=== PATIENT | male | born 1975 | race American Indian/Alaskan Native ===

== ENCOUNTER 2020-04-16 08:28 | Emergency (ER) | payer BC ==
[2020-04-16 08:37] VITALS: BP 168/91
[2020-04-16 10:25] LABS: Hematocrit 44.1 % (35.5-45.6); Hemoglobin 14.2 gm/dl (11.8-15.2); Mean Corpuscular HGB Conc 32 % (32-34); Platelet Count 337 K/mm3 (140-440); Red Blood Count 6.91 M/mm3 (3.65-5.03); Red Cell Distribution Width 19.8 % (13.2-15.2)
[2020-04-16 10:31] LABS: Mean Corpuscular Volume 64 fl (84-94)
[2020-04-16 10:51] LABS: Alanine Aminotransferase 45 units/L (7-56); Albumin 4.4 g/dL (3.9-5); BUN/Creatinine Ratio 8; Blood Urea Nitrogen 6 mg/dL (9-20); Calcium 9.4 mg/dL (8.4-10.2); Hemolysis Index 4
[2020-04-16] MEDS ORDERED: dexAMETHasone 20 MG/5 ML VIAL IV ONE (12:13)
--- NOTE | 2020-04-16 12:21 | Emergency Department Report ---
ED General Adult HPI - General Chief complaint: Skin Rash Stated complaint: NECK PAIN Time Seen by Provider: 04/16/20 08:57 Source: patient Mode of arrival: Ambulatory Limitations: No Limitations - History of Present Illness Initial comments: 44-year-old -[place] male patient with a history of hypertension presents with complaints of a painful rash on the back of his neck 44-year-old -[place] male patient with history of hypertension presents with complaints of sudden onset of a painful rash on the posterior portion of his neck x this morning. He states the rash is itchy since being here in the ED. He denies any fever/chills/sweats or known insect bites. 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 He describes the pain as a tightness and burning and rates his pain as a 4/10 in severity. Patient states he contacted his primary care provider who instructed him to come to the ED. - Related Data Previous Rx's Medication Instructions Recorded Last Taken Type Loratadine 10 mg PO QDAY 10 Days #10 tablet 04/16/20 Unknown Rx Prednisone [predniSONE 10 mg 10 mg PO .TAPER #1 tab.ds.pk 04/16/20 Unknown Rx (6-Day Pack, 21 Tabs)] Triamcinolone Acetonide 15 gm TP TID PRN 7 Days #1 04/16/20 Unknown Rx oint...g. Allergies Allergy/AdvReac Type Severity Reaction Status Date / Time No Known Allergies Allergy Verified 04/16/20 08:37 ED Review of Systems ROS: Stated complaint: NECK PAIN Other details as noted in HPI Constitutional: denies: chills, fever ENT: denies: throat pain Respiratory: denies: cough, shortness of breath Cardiovascular: denies: chest pain Gastrointestinal: denies: nausea, vomiting Skin: rash, pruritus. denies: lesions, change in color Neurological: denies: headache, weakness, numbness, paresthesias Hematological/Lymphatic: denies: easy bleeding, swollen glands ED Past Medical Hx - Past Medical History Previous Medical History?: Yes Hx Hypertension: Yes - Surgical History Past Surgical History?: Yes Additional Surgical History: Rt. wrist, lt. ankle - Social History Smoking Status: Never Smoker Substance Use Type: None - Medications Home Medications: Home Medications Medication Instructions Recorded Confirmed Last Taken Type Loratadine 10 mg PO QDAY 10 Days #10 tablet 04/16/20 Unknown Rx Prednisone [predniSONE 10 mg 10 mg PO .TAPER #1 tab.ds.pk 04/16/20 Unknown Rx (6-Day Pack, 21 Tabs)] Triamcinolone Acetonide 15 gm TP TID PRN 7 Days #1 04/16/20 Unknown Rx oint...g. ED Physical Exam - General Limitations: No Limitations General appearance: alert, in no apparent distress, obese - Head Head exam: Present: atraumatic, normocephalic - Eye Eye exam: Present: normal appearance. Absent: scleral icterus - ENT ENT exam: Present: mucous membranes moist - Neck Neck exam: Present: full ROM, other (5 cm ovoid indurated slightly elevated rash noted to the left posterior neck with a second approximately 7 to 8 cm rash of similar appearance to the right posterior neck. There is mild tenderness to palpation. Patient also states palpation causes itching. Minimal erythema noted. No fluctuance noted.). Absent: lymphadenopathy - Respiratory Respiratory exam: Present: normal lung sounds bilaterally. Absent: respiratory distress - Cardiovascular Cardiovascular Exam: Present: regular rate, normal rhythm. Absent: systolic murmur, diastolic murmur, rubs, gallop - Back Exam Back exam: Present: normal inspection - Neurological Exam Neurological exam: Present: alert, oriented X3 - Psychiatric Psychiatric exam: Present: normal affect, normal mood - Skin Skin exam: Present: warm, dry, intact, normal color, rash. Absent: diaphoretic, ecchymosis ED Course Vital Signs 04/16/20 08:35 Temperature 99 F Pulse Rate 89 Respiratory 17 Rate Blood Pressure 168/91 O2 Sat by Pulse 99 Oximetry ED Medical Decision Making - Lab Data Result diagrams: 04/16/20 10:12 04/16/20 10:12 Lab Results 04/16/20 04/16/20 Range/Units 10:12 10:12 WBC 14.9 H (4.5-11.0) K/mm3 RBC 6.91 H (3.65-5.03) M/mm3 Hgb 14.2 (11.8-15.2) gm/dl Hct 44.1 (35.5-45.6) % MCV 64 L (84-94) fl MCH 21 L (28-32) pg MCHC 32 (32-34) % RDW 19.8 H (13.2-15.2) % Plt Count 337 (140-440) K/mm3 Lymph # [employer] Sodium 143 (137-145) mmol/L Potassium 3.3 L (3.6-5.0) mmol/L Chloride 99.9 (98-107) mmol/L Carbon Dioxide 26 (22-30) mmol/L Anion Gap 20 mmol/L BUN 6 L (9-20) mg/dL Creatinine 0.8 (0.8-1.5) mg/dL Estimated GFR > 60 ml/min BUN/Creatinine Ratio 8 % Glucose 103 H (75-100) mg/dL Calcium 9.4 (8.4-10.2) mg/dL Total Bilirubin 0.80 (0.1-1.2) mg/dL AST 38 (5-40) units/L ALT 45 (7-56) units/L Alkaline Phosphatase 117 (35-129) units/L Total Protein 7.8 (6.3-8.2) g/dL Albumin 4.4 (3.9-5) g/dL Albumin/Globulin Ratio 1.3 % - Medical Decision Making Patient here with complaints of painful itchy rash to the posterior neck that suddenly began this morning. Discussed exam and lab findings with Dr. Weinstein- states rash appears to be more consistent with contact dermatitis. Patient given dose of Decadron here in the ED and prescription for prednisone, Claritin, and triamcinolone. Discussed care of rash and signs and symptoms of infection that should prompt immediate return to the emergency department, patient verbalizes understanding. Patient also recommended to follow-up with his primary care provider within 3 to 5 days. Critical care attestation.: If time is entered above; I have spent that time in minutes in the direct care of this critically ill patient, excluding procedure time. ED Disposition Clinical Impression: Contact dermatitis Qualifiers: Contact dermatitis type: allergic Contact dermatitis trigger: other trigger Qualified Code(s): L23.89 - Allergic contact dermatitis due to other agents; L23.8 - Allergic contact dermatitis due to other agents Disposition: DC-01 TO HOME OR SELFCARE Is pt being admited?: No Condition: Stable Instructions: Contact Dermatitis (ED) Prescriptions: Loratadine 10 mg PO QDAY 10 Days #10 tablet Prednisone [predniSONE 10 mg (6-Day Pack, 21 Tabs)] 10 mg PO .TAPER #1 tab.ds.pk Triamcinolone Acetonide 15 gm TP TID PRN 7 Days #1 oint...g. PRN Reason: itching Referrals: PRIMARY CARE, [Primary Care Provider] - 3-5 Days
[2020-04-16 12:33] LABS: Anisocytosis 1+; Basophils % (Manual) 0 % (0.0-1.8); Eosinophils % (Manual) 0 % (0.0-4.3); Hypochromasia 2+; Large Platelets Few; Platelet Estimate Consistent w Auto; Total Cells Counted 100
== END 2020-04-16 12:44 | disposition home or self-care (01) ==
LOC: ED 08:28
DX: L25.9 Unspecified contact dermatitis, unspecified cause (principal); I10 Essential (primary) hypertension; Z98.890 Other specified postprocedural states; Z79.899 Other long term (current) drug therapy
CPT/HCPCS: 36415; 80053; 85007; 85025; 96374; 99283; J1100

== ENCOUNTER 2020-05-03 10:17 | Emergency (ER) | payer BC ==
[2020-05-03 10:24] VITALS: BP 165/96
--- NOTE | 2020-05-03 12:41 | XRay Report ---
CHEST 2 VIEWS INDICATION: cough. COMPARISON: None FINDINGS: Support devices: None. Heart: Within normal limits. Lungs/pleura: No acute air space or interstitial disease. No pneumothorax. Additional findings: None. IMPRESSION: No acute findings. Signer Name: Raul Albarado Jr, MD Signed: 05/03/2020 12:36 PM Workstation Name: [id number]
[2020-05-03] MEDS ORDERED: BUTALB/ACETAMINOPHEN/CAFFEINE TAB PO ONE (12:58)
--- NOTE | 2020-05-03 12:58 | Emergency Department Report ---
- General Chief Complaint: Upper Respiratory Infection Stated Complaint: HEADACHE/BODY ACHE Time Seen by Provider: 05/03/20 11:56 Source: patient Mode of arrival: Ambulatory Limitations: No Limitations - History of Present Illness Initial Comments: 45-year-old male presents to the ER today complaining of sore throat, generalized body aches, headaches, sinus and nasal congestion since around April 28. He reports a cough but states that it is mild and intermittent. Patient states that he has a history of sinus infections/allergies. He did have sinus surgery in the past as well as tonsillectomy surgery several years ago. He states that he takes Benadryl every day at night, and when he symptoms started 5 days ago he started using a nasal spray that was prescribed to him about 2 months ago but is not really helping. He has also tried warm salt water gargles to help with the sore throat but without any relief. He denies any fever, chills, ill contacts or known COVID 19 contacts and denies recent travel. MD Complaint: sore throat, nasal congestion, sinus pain -: days(s) (5) - Related Data Previous Rx's Medication Instructions Recorded Last Taken Type Loratadine 10 mg PO QDAY 10 Days #10 tablet 04/16/20 Unknown Rx Amoxicillin [Trimox CAP] 500 mg PO Q8H #30 capsule 05/03/20 Unknown Rx Butalb/Acetamin/Caff 50-325-40 1 tab PO Q6HR PRN #12 tablet 05/03/20 Unknown Rx [Fioricet 50-325-40] Triamcinolone Acetonide [Nasacort 2 sprays NS DAILY #1 spray 05/03/20 Unknown Rx SPRAY] Allergies Allergy/AdvReac Type Severity Reaction Status Date / Time No Known Allergies Allergy Verified 04/16/20 08:37 ED Review of Systems ROS: Stated complaint: HEADACHE/BODY ACHE Other details as noted in HPI Comment: All other systems reviewed and negative Constitutional: denies: chills, fever ENT: throat pain, congestion. denies: ear pain Respiratory: cough. denies: orthopnea, shortness of breath, SOB with exertion, SOB at rest, stridor, wheezing Gastrointestinal: denies: abdominal pain, nausea, diarrhea Genitourinary: denies: urgency, dysuria Musculoskeletal: myalgia Neurological: headache ED Past Medical Hx - Past Medical History Previous Medical History?: Yes Hx Hypertension: Yes - Surgical History Past Surgical History?: Yes Additional Surgical History: Rt. wrist, lt. ankle. tonsillectomy. nasal reconstruction - Social History Smoking Status: Never Smoker Substance Use Type: None - Medications Home Medications: Home Medications Medication Instructions Recorded Confirmed Last Taken Type Loratadine 10 mg PO QDAY 10 Days #10 tablet 04/16/20 Unknown Rx Amoxicillin [Trimox CAP] 500 mg PO Q8H #30 capsule 05/03/20 Unknown Rx Butalb/Acetamin/Caff 50-325-40 1 tab PO Q6HR PRN #12 tablet 05/03/20 Unknown Rx [Fioricet 50-325-40] Triamcinolone Acetonide [Nasacort 2 sprays NS DAILY #1 spray 05/03/20 Unknown Rx SPRAY] ED Physical Exam - General Limitations: No Limitations General appearance: alert - Head Head exam: Present: atraumatic, normocephalic, normal inspection - Eye Eye exam: Present: normal appearance, PERRL, EOMI Pupils: Present: normal accommodation - ENT ENT exam: Present: mucous membranes moist, TM's normal bilaterally, other (Moderate erythema noted to the posterior pharynx. No apparent exudates. Patient does have frontal sinus tenderness bilaterally.) - Neck Neck exam: Present: normal inspection, full ROM. Absent: meningismus, lymphadenopathy - Respiratory Respiratory exam: Present: normal lung sounds bilaterally. Absent: respiratory distress - Cardiovascular Cardiovascular Exam: Present: regular rate, normal rhythm, normal heart sounds - GI/Abdominal GI/Abdominal exam: Present: soft. Absent: tenderness - Neurological Exam Neurological exam: Present: alert, oriented X3, CN II-XII intact - Psychiatric Psychiatric exam: Present: normal affect, normal mood - Skin Skin exam: Present: intact ED Course Vital Signs 05/03/20 10:18 Temperature 99.3 F Pulse Rate 95 H Respiratory 18 Rate Blood Pressure 165/96 O2 Sat by Pulse 98 Oximetry ED Medical Decision Making - Radiology Data Radiology results: report reviewed - Medical Decision Making 1303 -- The patient is resting comfortably, is alert and in no distress. The patient has a normal mental status and is neurologically intact. The patient appears well and is able to tolerate food or fluid by mouth, and there is no significant dehydration. There is no respiratory distress and no signs of systemic toxicity. The history, exam, diagnostic testing (if any) and current condition do not demonstrate an infectious process such as meningitis, severe pneumonia, retropharyngeal abscess, epiglottitis, sepsis or other serious bacterial infection requiring further testing, treatment, consultation, or admission at this time. The vital signs have been stable. The patient's condition is stable and appropriate for discharge. The patient will pursue further outpatient evaluation with the primary care physician or other designated or consulting physician as indicated in the discharge instructions. Critical care attestation.: If time is entered above; I have spent that time in minutes in the direct care of this critically ill patient, excluding procedure time. ED Disposition Clinical Impression: Bacterial sinusitis, Pharyngitis Disposition: TO HOME OR SELFCARE Is pt being admited?: No Does the pt Need Aspirin: No Condition: Stable Instructions: Pharyngitis (ED), Sinusitis (ED) Prescriptions: Butalb/Acetamin/Caff 50-325-40 [Fioricet 50-325-40] 1 tab PO Q6HR PRN #12 tablet PRN Reason: Headache Triamcinolone Acetonide [Nasacort SPRAY] 2 sprays NS DAILY #1 spray Amoxicillin [Trimox CAP] 500 mg PO Q8H #30 capsule Referrals: PRIMARY CARE, [Primary Care Provider] - 3-5 Days Time of Disposition: 13:01
== END 2020-05-03 13:21 | disposition home or self-care (01) ==
LOC: ED 10:17
DX: J32.8 Other chronic sinusitis (principal); B96.89 Other specified bacterial agents as the cause of diseases classified elsewhere; J02.9 Acute pharyngitis, unspecified; I10 Essential (primary) hypertension; Z98.890 Other specified postprocedural states; Z79.2 Long term (current) use of antibiotics; Z79.899 Other long term (current) drug therapy
CPT/HCPCS: 71046; 99283

== ENCOUNTER 2020-07-26 09:37 | Emergency (ER) | payer BC ==
--- NOTE | 2020-07-26 10:34 | Emergency Department Report ---
HPI - General Chief Complaint: Abdominal Pain Time Seen by Provider: 07/26/20 10:23 - HPI HPI: This is a 45-year-old male who presents to the emergency department with a complaint of abdominal pain that started yesterday afternoon and worsened overnight. 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 He did not take anything for his symptoms at that time, but went home and "I tried to have a bowel movement" and the patient says that he was having some improvement. However, overnight, the abdominal pain worsened to the point where the patient was unable to sleep. It is associated with some nausea without vomiting. Patient has a history of hypertension and psoriasis. He follows with [facility] primary care. No recent travel or sick contacts at home. ED Past Medical Hx - Past Medical History Hx Hypertension: Yes - Surgical History Past Surgical History?: Yes Additional Surgical History: Rt. wrist, lt. ankle. tonsillectomy. nasal reconstruction - Social History Smoking Status: Never Smoker - Medications Home Medications: Home Medications Medication Instructions Recorded Confirmed Last Taken Type Loratadine 10 mg PO QDAY 10 Days #10 tablet 04/16/20 Unknown Rx Amoxicillin [Trimox CAP] 500 mg PO Q8H #30 capsule 05/03/20 Unknown Rx Butalb/Acetamin/Caff 50-325-40 1 tab PO Q6HR PRN #12 tablet 05/03/20 Unknown Rx [Fioricet 50-325-40] Triamcinolone Acetonide [Nasacort 2 sprays NS DAILY #1 spray 05/03/20 Unknown R x SPRAY] Amoxicillin/Potassium Clav 1 each PO BID #14 tablet 07/26/20 Unknown Rx [Augmentin 875-125 Tablet] HYDROcodone/APAP 5-325 [[place] 1 each PO Q6HR PRN #10 tablet 07/26/20 Unknown Rx 5/325] ED Review of Systems ROS: Stated complaint: SEVERE ABD PAIN Other details as noted in HPI Comment: All other systems reviewed and negative Constitutional: denies: chills, fever Eyes: denies: eye pain, vision change ENT: denies: ear pain, throat pain Respiratory: denies: cough, shortness of breath Cardiovascular: denies: chest pain, palpitations Gastrointestinal: abdominal pain, nausea. denies: vomiting Genitourinary: denies: dysuria, discharge Musculoskeletal: denies: back pain, arthralgia Skin: denies: rash, lesions Neurological: denies: headache, weakness Physical Exam - Physical Exam Vital Signs: Vital Signs 07/26/20 09:49 Temperature 98.2 F Pulse Rate 82 Respiratory 18 Rate Blood Pressure 197/96 O2 Sat by Pulse 98 Oximetry Physical Exam: GENERAL: The patient is well-developed well-nourished. HENT: Normocephalic. Atraumatic. Patient has moist mucous membranes. EYES: Extraocular motions are intact. NECK: Supple. Trachea is midline. CHEST/LUNGS: Clear to auscultation. There is no respiratory distress noted. HEART/CARDIOVASCULAR: Regular. There is no tachycardia. There is no murmur. ABDOMEN: Abdomen is soft. There is some left upper quadrant and epigastric tenderness to palpation. No guarding. Patient has normal bowel sounds. Obese habitus. SKIN: Skin is warm and dry. NEURO: The patient is awake, alert, and oriented. The patient is cooperative. The patient has no focal neurologic deficits. Normal speech. MUSCULOSKELETAL: There is no tenderness or deformity. ED Course Vital Signs 07/26/20 09:49 Temperature 98.2 F Pulse Rate 82 Respiratory 18 Rate Blood Pressure 197/96 O2 Sat by Pulse 98 Oximetry - Reevaluation(s) Reevaluation #1: 07/26/20 15:26 Lab Results 07/26/20 07/26/20 07/26/20 Range/Units 10:28 10:28 10:28 WBC 12.7 H (4.5-11.0) K/mm3 RBC 6.43 H (3.65-5.03) M/mm3 Hgb 13.1 (11.8-15.2) gm/dl Hct 41.0 (35.5-45.6) % MCV 64 L (84-94) fl MCH 20 L (28-32) pg MCHC 32 (32-34) % RDW 19.5 H (13.2-15.2) % Plt Count 346 (140-440) K/mm3 Lymph % (Auto) 30.8 (13.4-35.0) % [place] % (Auto) 5.1 (0.0-7.3) % Eos % (Auto) 1.5 (0.0-4.3) % Baso % (Auto) 0.4 (0.0-1.8) % Lymph # 3.9 (1.2-5.4) K/mm3 [place] # 0.7 (0.0-0.8) K/mm3 Eos # 0.2 (0.0-0.4) K/mm3 Baso # 0.1 (0.0-0.1) K/mm3 Seg Neutrophils % 62.2 (40.0-70.0) % Seg Neutrophils # 7.9 H (1.8-7.7) K/mm3 Sodium 139 (137-145) mmol/L Potassium 2.9 L* (3.6-5.0) mmol/L Chloride 96.6 L (98-107) mmol/L Carbon Dioxide 28 (22-30) mmol/L Anion Gap 17 mmol/L BUN 7 L (9-20) mg/dL Creatinine 0.8 (0.8-1.3) mg/dL Estimated GFR > 60 ml/min BUN/Creatinine Ratio 9 % Glucose 105 H (75-100) mg/dL Calcium 9.1 (8.4-10.2) mg/dL Total Bilirubin 0.70 (0.1-1.2) mg/dL AST 33 (5-40) units/L ALT 34 (7-56) units/L Alkaline Phosphatase 102 (35-129) units/L Total Protein 7.9 (6.3-8.2) g/dL Albumin 4.2 (3.9-5) g/dL Albumin/Globulin Ratio 1.1 % Lipase 14 (13-60) units/L Urine Color (Yellow) Urine Turbidity (Clear) Urine pH (5.0-7.0) Ur Specific [place] (1.003-1.030) Urine Protein (Negative) mg/dL Urine Glucose (UA) (Negative) mg/dL Urine Ketones (Negative) mg/dL Urine Blood (Negative) Urine Nitrite (Negative) Urine Bilirubin (Negative) Urine Urobilinogen (<2.0) mg/dL Ur Leukocyte Esterase (Negative) Urine WBC (Auto) (0.0-6.0) /HPF Urine RBC (Auto) (0.0-6.0) /HPF U Epithel Cells (Auto) (0-13.0) /HPF Urine Mucus /HPF 07/26/ Range/Units Unknown WBC (4.5-11.0) K/mm3 RBC (3.65-5.03) M/mm3 Hgb (11.8-15.2) gm/dl Hct (35.5-45.6) % MCV (84-94) fl MCH (28-32) pg MCHC (32-34) % RDW (13.2-15.2) % Plt Count (140-440) K/mm3 Lymph % (Auto) (13.4-35.0) % [place] % (Auto) (0.0-7.3) % Eos % (Auto) (0.0-4.3) % Baso % (Auto) (0.0-1.8) % Lymph # (1.2-5.4) K/mm3 [place] # (0.0-0.8) K/mm3 Eos # (0.0-0.4) K/mm3 Baso # (0.0-0.1) K/mm3 Seg Neutrophils % (40.0-70.0) % Seg Neutrophils # (1.8-7.7) K/mm3 Sodium (137-145) mmol/L Potassium (3.6-5.0) mmol/L Chloride (98-107) mmol/L Carbon Dioxide (22-30) mmol/L Anion Gap mmol/L BUN (9-20) mg/dL Creatinine (0.8-1.3) mg/dL Estimated GFR ml/min BUN/Creatinine Ratio % Glucose (75-100) mg/dL Calcium (8.4-10.2) mg/dL Total Bilirubin (0.1-1.2) mg/dL AST (5-40) units/L ALT (7-56) units/L Alkaline Phosphatase (35-129) units/L Total Protein (6.3-8.2) g/dL Albumin (3.9-5) g/dL Albumin/Globulin Ratio % Lipase (13-60) units/L Urine Color Yellow (Yellow) Urine Turbidity Clear (Clear) Urine pH 6.0 (5.0-7.0) Ur Specific [place] 1.017 (1.003-1.030) Urine Protein 30 mg/dl (Negative) mg/dL Urine Glucose (UA) Neg (Negative) mg/dL Urine Ketones Neg (Negative) mg/dL Urine Blood Neg (Negative) Urine Nitrite Neg (Negative) Urine Bilirubin Neg (Negative) Urine Urobilinogen < 2.0 (<2.0) mg/dL Ur Leukocyte Esterase Neg (Negative) Urine WBC (Auto) 1.0 (0.0-6.0) /HPF Urine RBC (Auto) 3.0 (0.0-6.0) /HPF U Epithel Cells (Auto) < 1.0 (0-13.0) /HPF Urine Mucus Few /HPF ED Medical Decision Making - Lab Data Result diagrams: 07/26/20 10:28 07/26/20 10:28 - Radiology Data Radiology results: report reviewed, image reviewed interpreted by me: Abdominal x-ray shows nonspecific nonobstructive bowel gas. CT abdomen pelvis w con INDICATION: Abd pain. TECHNIQUE: All CT scans at this location are performed using the following dose modulation technique: Automated exposure control. CONTRAST: IV. COMPARISON: None available. CT abdomen: Evaluation the parenchymal organs demonstrates diffuse fatty infiltration the liver. The remaining parenchymal organs are unremarkable. Negative for abdominal mass, adenopathy or fluid collection. Evaluation of bowel demonstrates mild thickening involving several loops of jejunum anteriorly at the mid abdomen. There is mild mesenteric inflammation. No obstruction or pneumatosis. CT PELVIS: Negative for mass, fluid or inflammation. IMPRESSION: 1. Moderate thickening involving several loops of jejunum with associated mesenteric inflammation. Infection is the most likely etiology. 2. Large, fatty liver. - Medical Decision Making This patient presents with some mid to upper abdominal pain since yesterday. He has some tenderness to palpation but no guarding. His abdomen is soft, nondistended and nontoxic in appearance. Patient's labs are mostly unremarkable except for a hypokalemia with potassium of 2.9. For this the patient was given both IV and oral potassium chloride supplementation. Abdominal x-ray shows nonspecific nonobstructive bowel gas. CT of the abdomen and pelvis with IV contrast shows some inflammation of the jejunum that could be consistent with infection. Patient is afebrile. No leukocytosis. He will be treated with both Augmentin and some pain medication. He has been given outpatient referral for gastroenterology. He will return to the emergency department with any worsening of his symptoms and with any acute distress. Critical Care Time: No Critical care attestation.: If time is entered above; I have spent that time in minutes in the direct care of this critically ill patient, excluding procedure time. ED Disposition Clinical Impression: Hypokalemia, Enteritis Hypertension Qualifiers: Hypertension type: essential hypertension Qualified Code(s): I10 - Essential (primary) hypertension Disposition: TO HOME OR SELFCARE Is pt being admited?: No Condition: Stable Instructions: Hypokalemia (ED), Abdominal Pain (ED), Hypertension (ED) Additional Instructions: Please follow-up with a primary care physician in the next few days. Return to the emergency department with any worsening of your symptoms or with any acute distress. You have been prescribed a medication that is sedating and therefore should not be taken prior to driving, working, and responsible for children and in no way should be mixed with alcohol of any quantity. Prescriptions: Amoxicillin/Potassium Clav [Augmentin 875-125 Tablet] 1 each PO BID #14 tablet HYDROcodone/APAP 5-325 [[place] 5/325] 1 each PO Q6HR PRN #10 tablet PRN Reason: Pain Referrals: PRIMARY CARE, [Primary Care Provider] - 2-3 Days Time of Disposition: 14:26
[2020-07-26 10:40] LABS: Basophils # (Auto) 0.1 K/mm3 (0.0-0.1); Basophils % (Auto) 0.4 % (0.0-1.8); Eosinophils # (Auto) 0.2 K/mm3 (0.0-0.4); Eosinophils % (Auto) 1.5 % (0.0-4.3); Hemoglobin 13.1 gm/dl (11.8-15.2); Lymphocytes # (Auto) 3.9 K/mm3 (1.2-5.4); Lymphocytes % (Auto) 30.8 % (13.4-35.0); Mean Corpuscular HGB Conc 32 % (32-34); Monocytes # (Auto) 0.7 K/mm3 (0.0-0.8); Monocytes % (Auto) 5.1 % (0.0-7.3); Platelet Count 346 K/mm3 (140-440); Red Blood Count 6.43 M/mm3 (3.65-5.03); Red Cell Distribution Width 19.5 % (13.2-15.2)
[2020-07-26 10:43] LABS: Mean Corpuscular Volume 64 fl (84-94)
[2020-07-26 11:03] LABS: Alanine Aminotransferase 34 units/L (7-56); Albumin 4.2 g/dL (3.9-5); BUN/Creatinine Ratio 9; Blood Urea Nitrogen 7 mg/dL (9-20); Calcium 9.1 mg/dL (8.4-10.2); Hemolysis Index 2
[2020-07-26] MEDS ORDERED: POTASSIUM CHLORIDE ER 20 MEQ TAB PO ONE (11:31)
[2020-07-26] MEDS ORDERED: POTASSIUM CHLORIDE 10 MEQ 10 MEQ/100 ML BAG IV ONE (11:31)
--- NOTE | 2020-07-26 11:45 | XRay Report ---
ABDOMEN 4 VIEW(S) INDICATION / CLINICAL INFORMATION: Abd pain. COMPARISON: None available. FINDINGS: TUBES / LINES: None. BOWEL GAS PATTERN: Stomach appears to be mildly distended with fluid air there appear to be mild air fluid levels in small bowel, which is not dilated. Fecal material is noted throughout the colon. FREE AIR / EXTRALUMINAL GAS: None seen. ADDITIONAL FINDINGS: Pelvic phleboliths are noted. IMPRESSION: 1. Fluid in the stomach and small bowel suggests gastroenteritis. 2. Mild constipation. Signer Name: Dileep Mansfield MD Signed: 07/26/2020 11:41 AM Workstation Name: [id number]
[2020-07-26] MEDS ORDERED: SODIUM CHLORIDE 0.9% 500 ML 500 ML ONE (12:20)
[2020-07-26] MEDS ORDERED: SODIUM CHLORIDE 0.9% 500 ML 500 ML IV SCH (13:00)
[2020-07-26 14:14] LABS: Bilirubin,Urine NEG (Negative); Blood,Urine NEG (Negative); Color,Urine Yellow (Yellow); Mucus,Urine FEW /HPF; Urobilinogen,Urine < 2.0 mg/dL (<2.0)
--- NOTE | 2020-07-26 14:20 | Cat Scan Report ---
CT abdomen pelvis w con INDICATION: Abd pain. TECHNIQUE: All CT scans at this location are performed using the following dose modulation technique: Automated exposure control. CONTRAST: IV. COMPARISON: None available. CT abdomen: Evaluation the parenchymal organs demonstrates diffuse fatty infiltration the liver. The remaining parenchymal organs are unremarkable. Negative for abdominal mass, adenopathy or fluid collection. Evaluation of bowel demonstrates mild thickening involving several loops of jejunum anteriorly at the mid abdomen. There is mild mesenteric inflammation. No obstruction or pneumatosis. CT PELVIS: Negative for mass, fluid or inflammation. IMPRESSION: 1. Moderate thickening involving several loops of jejunum with associated mesenteric inflammation. In fection is the most likely etiology. 2. Large, fatty liver. Signer Name: Sanya Cardoza MD Signed: 07/26/2020 2:16 PM Workstation Name: [id number]
[2020-07-26 15:02] VITALS: BP 172/104
== END 2020-07-26 14:47 | disposition home or self-care (01) ==
LOC: ED 09:37
DX: E87.6 Hypokalemia (principal); K52.9 Noninfective gastroenteritis and colitis, unspecified; I10 Essential (primary) hypertension; Z90.89 Acquired absence of other organs; Z98.890 Other specified postprocedural states; Z79.2 Long term (current) use of antibiotics; Z79.899 Other long term (current) drug therapy
CPT/HCPCS: 36415; 74019; 74177; 80053; 81001; 83690; 85025; 96365; 96366; 99284; J3480; J7040; Q9967

== ENCOUNTER 2020-08-04 00:58 | Emergency (ER) | payer BC ==
[2020-08-04 02:02] VITALS: BP 136/85
[2020-08-04 03:33] LABS: Hematocrit 41.7 % (35.5-45.6); Mean Corpuscular HGB Conc 31 % (32-34); Platelet Count 369 K/mm3 (140-440); Red Cell Distribution Width 19.3 % (13.2-15.2)
[2020-08-04 03:41] LABS: Mean Corpuscular Volume 65 fl (84-94)
[2020-08-04 03:52] LABS: BUN/Creatinine Ratio 10; Blood Urea Nitrogen 8 mg/dL (9-20); Calcium 9.2 mg/dL (8.4-10.2); Hemolysis Index 12
--- NOTE | 2020-08-04 05:13 | Emergency Department Report ---
ED General Adult HPI - General Chief complaint: Abdominal Pain Stated complaint: RT SIDE PAIN HEAD SWELLING POSS ALLERGIC REACTION Time Seen by Provider: 08/04/20 04:58 Source: patient Mode of arrival: Ambulatory Limitations: No Limitations - History of Present Illness Initial comments: 45-year-old obese -[place] male with past medical history of hypertension presents emergency department complaining of pain and discomfort to the right lower skull base and upper neck region also reports some irritation to his abdomen of an unknown etiology for the past couple days. No nausea, no vomiting, no hematuria, no dysuria, no fever, chills, sweats no chest pain or palpitations no nausea vomiting -: Gradual Radiation: non-radiation Quality: dull Consistency: constant Improves with: none Worsens with: none Associated Symptoms: denies: confusion, cough, headaches, loss of appetite, malaise, nausea/vomiting Treatments Prior to Arrival: none - Related Data Previous Rx's Medication Instructions Recorded Last Taken Type Loratadine 10 mg PO QDAY 10 Days #10 tablet 04/16/20 Unknown Rx Amoxicillin [Trimox CAP] 500 mg PO Q8H #30 capsule 05/03/20 Unknown Rx Butalb/Acetamin/Caff 50-325-40 1 tab PO Q6HR PRN #12 tablet 05/03/20 Unknown Rx [Fioricet 50-325-40] Triamcinolone Acetonide [Nasacort 2 sprays NS DAILY #1 spray 05/03/20 Unknown Rx SPRAY] Amoxicillin/Potassium Clav 1 each PO BID #14 tablet 07/26/20 Unknown Rx [Augmentin 875-125 Tablet] HYDROcodone/APAP 5-325 [[place] 1 each PO Q6HR PRN #10 tablet 07/26/20 Unknown Rx 5/325] Ketorolac [Toradol] 10 mg PO Q6H PRN #15 tablet 08/04/20 Unknown Rx Mupirocin [Bactroban 2%] 15 applic TP TID #15 gm 08/04/20 Unknown Rx Sulfamethoxazole/Trimethoprim 1 each PO BID #20 tablet 08/04/20 Unknown Rx [Bactrim Ds] Allergies Allergy/AdvReac Type Severity Reaction Status Date / Time No Known Allergies Allergy Verified 04/16/20 08:37 ED Review of Systems ROS: Stated complaint: RT SIDE PAIN HEAD SWELLING POSS ALLERGIC REACTION Other details as noted in HPI Comment: All other systems reviewed and negative ED Past Medical Hx - Past Medical History Previous Medical History?: Yes Hx Hypertension: Yes Hx Kidney Stones: Yes Additional medical history: Morbid Obesity - Surgical History Past Surgical History?: Yes Additional Surgical History: Rt. wrist, lt. ankle. tonsillectomy. nasal reconstruction - Social History Smoking Status: Never Smoker Substance Use Type: None - Medications Home Medications: Home Medications Medication Instructions Recorded Confirmed Last Taken Type Loratadine 10 mg PO QDAY 10 Days #10 tablet 04/16/20 Unknown Rx Amoxicillin [Trimox CAP] 500 mg PO Q8H #30 capsule 05/03/20 Unknown Rx Butalb/Acetamin/Caff 50-325-40 1 tab PO Q6HR PRN #12 tablet 05/03/20 Unknown Rx [Fioricet 50-325-40] Triamcinolone Acetonide [Nasacort 2 sprays NS DAILY #1 spray 05/03/20 Unknown Rx SPRAY] Amoxicillin/Potassium Clav 1 each PO BID #14 tablet 07/26/20 Unknown Rx [Augmentin 875-125 Tablet] HYDROcodone/APAP 5-325 [[place] 1 each PO Q6HR PRN #10 tablet 07/26/20 Unknown Rx 5/325] Ketorolac [Toradol] 10 mg PO Q6H PRN #15 tablet 08/04/20 Unknown Rx Mupirocin [Bactroban 2%] 15 applic TP TID #15 gm 08/04/20 Unknown Rx Sulfamethoxazole/Trimethoprim 1 each PO BID #20 tablet 08/04/20 Unknown Rx [Bactrim Ds] ED Physical Exam - General Limitations: No Limitations General appearance: alert, in no apparent distress - Head Head exam: Present: atraumatic - Expanded Head Exam Expanded Head exam: Present: general tenderness 1 - Red swollen indurated area with warmth and tenderness. No lymphadenopathy no discharge - Eye Eye exam: Present: normal appearance, PERRL, EOMI Pupils: Present: normal accommodation - ENT ENT exam: Present: normal exam - Neck Neck exam: Present: normal inspection, full ROM, lymphadenopathy (s) - Respiratory Respiratory exam: Present: normal lung sounds bilaterally - Cardiovascular Cardiovascular Exam: Present: regular rate, normal rhythm. Absent: systolic murmur, diastolic murmur, rubs, gallop - GI/Abdominal GI/Abdominal exam: Present: soft, normal bowel sounds - Rectal Rectal exam: Present: deferred - Extremities Exam Extremities exam: Present: normal inspection - Back Exam Back exam: Present: normal inspection. Absent: CVA tenderness (R), CVA tenderness (L) - Neurological Exam Neurological exam: Present: alert, oriented X3, CN II-XII intact - Psychiatric Psychiatric exam: Present: normal affect, normal mood - Skin Skin exam: Present: warm, dry, intact, normal color. Absent: rash ED Course Vital Signs 08/04/20 01:56 Temperature 98.2 F Pulse Rate 94 H Respiratory 18 Rate Blood Pressure 136/85 O2 Sat by Pulse 96 Oximetry ED Medical Decision Making - Lab Data Result diagrams: 08/04/20 02:55 08/04/20 02:55 Critical care attestation.: If time is entered above; I have spent that time in minutes in the direct care of this critically ill patient, excluding procedure time. ED Disposition Clinical Impression: Cellulitis, neck, Abdominal pain Disposition: DC-01 TO HOME OR SELFCARE Is pt being admited?: No Does the pt Need Aspirin: No Condition: Stable Instructions: Cellulitis (ED), Flank Pain (ED) Referrals: RONEN DOUGLAS MD [Staff Physician] - 3-5 Days
[2020-08-04 05:17] LABS: Anisocytosis 1+; Band Neutrophils # (Manual) 0.3 K/mm3; Basophils % (Manual) 0 % (0.0-1.8); Hypochromasia 1+; Platelet Estimate Consistent w Auto; Total Cells Counted 100
== END 2020-08-04 06:05 | disposition home or self-care (01) ==
LOC: ED 00:58
DX: L03.221 Cellulitis of neck (principal); R10.9 Unspecified abdominal pain; I10 Essential (primary) hypertension; E66.01 Morbid (severe) obesity due to excess calories; Z68.42 Body mass index [BMI] 45.0-49.9, adult; Z87.442 Personal history of urinary calculi; Z98.890 Other specified postprocedural states; Z79.899 Other long term (current) drug therapy
CPT/HCPCS: 36415; 80048; 85007; 85025; 99283